=== PATIENT | male | born 1950 | race Caucasian/White ===

== ENCOUNTER → 2019-04-02 | Outpatient (CLI) | payer MEDICARE, OTHER ==
--- NOTE | 2019-04-02 16:53 | RADIOLOGY REPORT (SQ) ---
EXAM DESCRIPTION: CAROTID DOPPLER COMPLETED DATE/TIME: 04/02/2019 3:56 pm REASON FOR STUDY: PVD E11.43 TYPE 2 DIABETES W DIABETIC AUTONOMIC (POLY)NEUROPATHY COMPARISON: None. TECHNIQUE: Grayscale ultrasound, Doppler velocity and spectra, and color Doppler images acquired of the extra-cranial carotid and vertebral arteries. Images stored on PACS. LIMITATIONS: None. FINDINGS: RIGHT CAROTID CCA Velocities: Within normal limits. ICA Velocities Peak systolic 1.05 m/s. End diastolic 0.19 m/s. Proximal ICA/CCA peak systolic ratio 0.94. Shadowing plaque in the carotid bulb and proximal internal carotid artery. LEFT CAROTID CCA Velocities: Within normal limits. ICA Velocities Peak systolic 0.65 m/s. End diastolic 0.19 m/s. Proximal ICA/CCA peak systolic ratio 0.68. Shadowing plaque in the carotid bulb and proximal internal carotid artery. VERTEBRAL ARTERIES: Antegrade flow. Normal waveforms. SUBCLAVIAN ARTERIES: No finding. OTHER: No other significant finding. IMPRESSION: NO HEMODYNAMICALLY SIGNIFICANT STENOSIS. COMMENT: Quality ID #[id number]: Velocity criteria are extrapolated from the diameter data as defined by t he Society of Radiologists in Ultrasound Consensus Conference. Radiology 2003: 229; 340-346. TECHNICAL DOCUMENTATION: JOB ID: [id number] [employer]- All Rights Reserved Reading location - IP/workstation name: [email or web address]
--- NOTE | 2019-04-02 18:07 | XCELERA REPORT ---
[address] [address] Lower Extremity Arterial Evaluation Name: ABRAHAM ALEXANDER Age: 68 yrs Gender: Male : 1950 Patient Status: Outpatient Patient Location: [facility] Study Date: 04/02/2019 02:21 PM Procedure: A color flow and duplex scan of the lower extremity arteries was performed bilaterally with velocity and waveform anaylsis. Reason For Study: PVD Ordering Physician: SHANNA BOONE Performed By: Gustavo Martines Measurements and Calculations Right Left PMO BUSINESS ANALYST PSV 100.6 76.1 cm/sec Prox PFA PSV -72.7 -49.9 cm/sec Prox SFA PSV 92.2 80.0 cm/sec Mid SFA PSV -59.4 -61.3 cm/sec Dist SFA PSV -52.4 -66.8 cm/sec Prox Pop A PSV 63.3 43.7 cm/sec Dist CHRISTINA PSV 45.7 53.8 cm/sec Dist NURSE ORTHOPEDIC PSV 21.2 74.2 cm/sec Roberto Pedis PSV 13.6 81.0 cm/sec Right Side Arterial Evaluation Normal velocity and triphasic waveforms noted from the Common Femoral artery to the infrageniculate vessels . Biphasic with low velocity in the Dorsalis Pedis artery. Ankle Brachial index not obtained . Left Side Arterial Evaluation Normal velocity and triphasic waveforms noted from the Common Femoral artery to the infrageniculate vessels . . Ankle Brachial index not obtained . Interpretation Summary Mild hemodynamically significant lesions in the right lower extremity only, on duplex imaging, at rest. No hemodynamically significant lesions in the left lower extremity only, on duplex imaging, at rest. Duplex findings are close to normal, abnormality in the right dorsalis Pedis is not likely to be of clinical consequence. : SHANNA BOONE > Marino Cam
== END ==
LOC: SP 13:12
PROVIDERS: ATTEND Internal Medicine Geriatric Medicine
DX: E11.43 Type 2 diabetes mellitus with diabetic autonomic (poly)neuropathy (principal)
CPT/HCPCS: 93880; 93925

== ENCOUNTER → 2020-06-03 | Outpatient (CLI) | payer MEDICARE, OTHER | LOC: OD 11:43 | DX: C61 Malignant neoplasm of prostate (principal) | CPT/HCPCS: 36415; 84153 ==